=== PATIENT | female | born 1990 | race Caucasian/White ===

== ENCOUNTER 2020-11-02 13:58 | Day surgery (SDC) | payer OTHER ==
[~2020-11-02] VITALS: Ht 162.6 cm; Wt 102.5 kg
[2020-11-02 14:57] VITALS: BP 109/57
[2020-11-02 18:17] VITALS: BP 136/73
== END 2020-11-02 18:20 ==
LOC: DS 13:58
PROVIDERS: ATTEND Internal Medicine Gastroenterology
DX: K62.5 Hemorrhage of anus and rectum (principal); K64.8 Other hemorrhoids; K63.89 Other specified diseases of intestine
CPT/HCPCS: 45378; J1200; J1610; J2250; J2310; J3010; J3490